=== PATIENT | male | born 1985 | race African-American/Black ===

== ENCOUNTER 2021-11-10 14:49 | Emergency (ER) | payer OTHER ==
[~2021-11-10] VITALS: Ht 172.7 cm; Wt 45.4 kg
[2021-11-10] MEDS ORDERED: IBUPROFEN600 MG PO (15:44)
[2021-11-10] MEDS ORDERED: TAMIFLU75 MG PO (15:44)
[2021-11-10] MEDS ORDERED: BENZONATATE200 MG PO (15:44)
== END 2021-11-10 15:49 | disposition home or self-care (01) ==
LOC: FSED 14:59
DX: R05.9 Cough, unspecified (principal); J10.1 Influenza due to other identified influenza virus with other respiratory manifestations; Z20.822 Contact with and (suspected) exposure to COVID-19; F17.210 Nicotine dependence, cigarettes, uncomplicated
CPT/HCPCS: 87400; 99282; U0002

== ENCOUNTER 2021-12-09 00:02 | Emergency (ER) | payer OTHER ==
[~2021-12-09] VITALS: Ht 167.6 cm; Wt 101.2 kg
[~2021-12-09 00:02] MED LIST: BENZONATATE200 MG PO; IBUPROFEN600 MG PO; TAMIFLU75 MG PO
[2021-12-09] MEDS ORDERED: ACETAMINOPHEN 325 MG TAB PO ONE (00:30)
[2021-12-09] MEDS ORDERED: ACETAMINOPHEN 325 MG TAB ONE (00:46)
[2021-12-09] MEDS ORDERED: KETOROLAC TROMETHAMINE 30 MG/ML VIAL IV STA (00:57)
[2021-12-09] MEDS ORDERED: SODIUM CHLORIDE 0.9% 1000ML 1,000 ML IV SCH (01:00)
[2021-12-09] MEDS ORDERED: KETOROLAC TROMETHAMINE 30 MG/ML VIAL ONE (01:17)
[2021-12-09] MEDS ORDERED: SODIUM CHLORIDE 0.9% 1000ML 1,000 ML ONE (01:17)
[2021-12-09 01:56] VITALS: BP 135/78
== END 2021-12-09 02:46 | disposition home or self-care (01) ==
LOC: FSED 00:24
DX: R50.9 Fever, unspecified (principal); B34.9 Viral infection, unspecified; R74.8 Abnormal levels of other serum enzymes; Z20.822 Contact with and (suspected) exposure to COVID-19; F17.210 Nicotine dependence, cigarettes, uncomplicated
CPT/HCPCS: 71046; 81003; 87400; 96374; 99283; J1885; J7030; U0002

== ENCOUNTER 2022-10-28 11:58 | Emergency (ER) | payer BC ==
[~2022-10-28] VITALS: Ht 172.7 cm; Wt 96.6 kg
[~2022-10-28 11:58] MED LIST changes: +AMOXICILLIN500 MG PO
[2022-10-28] MEDS ORDERED: ULTRAM 50MG50 MG PO (12:35)
== END 2022-10-28 12:51 | disposition home or self-care (01) ==
LOC: FSED 12:23
DX: S83.92XA Sprain of unspecified site of left knee, initial encounter (principal)
CPT/HCPCS: 99283

== ENCOUNTER 2023-06-12 08:54 | Emergency (ER) | payer BC ==
[~2023-06-12] VITALS: Ht 170.2 cm; Wt 84.5 kg
[~2023-06-12 08:54] MED LIST changes: +BENZONATATE100 MG PO; +CLARITIN-D 241 EACH PO; +MUCINEX DM ER1 EAC1 PO; +PROAIR DIGIHAL90 MCG INH; +ULTRAM 50MG50 MG PO
[2023-06-12] MEDS ORDERED: SODIUM CHLORIDE 0.9% 1000ML 1,000 ML IV STA (09:21)
[2023-06-12] MEDS ORDERED: KETOROLAC TROMETHAMINE 30 MG/ML VIAL IV ONE (09:30)
[2023-06-12] MEDS ORDERED: FAMOTIDINE 20 MG/2 ML VIAL IV ONE ×2 (09:30→09:46)
[2023-06-12] MEDS ORDERED: ONDANSETRON HCL INJ 2MG/ML 2ML 2 MG/ML VIAL IV ONE (09:30)
[2023-06-12] MEDS ORDERED: FAMOTIDINE20 MG PO (09:33)
[2023-06-12] MEDS ORDERED: ONDANSETRON ODT4 MG PO (09:33)
[2023-06-12] MEDS ORDERED: MAALOX MAXIMUM355 ML PO (09:33)
[2023-06-12] MEDS ORDERED: DICYCLOMINE HCL20 MG PO (09:33)
[2023-06-12] MEDS ORDERED: SODIUM CHLORIDE 0.9% 1000ML 1,000 ML ONE (09:46)
[2023-06-12] MEDS ORDERED: ONDANSETRON HCL INJ 2MG/ML 2ML 2 MG/ML VIAL ONE (09:46)
[2023-06-12] MEDS ORDERED: KETOROLAC TROMETHAMINE 30 MG/ML VIAL ONE (09:46)
[2023-06-12 10:31] VITALS: O2SAT 100
== END 2023-06-12 10:31 | disposition home or self-care (01) ==
LOC: FSED 09:02
DX: R11.2 Nausea with vomiting, unspecified (principal); A05.9 Bacterial foodborne intoxication, unspecified; R19.7 Diarrhea, unspecified; F17.210 Nicotine dependence, cigarettes, uncomplicated
CPT/HCPCS: 80053; 81003; 85025; 96374; 96375; 99284; J1885; J2405; J7030

== ENCOUNTER 2024-02-18 07:47 | Emergency (ER) | payer BC ==
[~2024-02-18] VITALS: Ht 167.6 cm; Wt 86.6 kg
[~2024-02-18 07:47] MED LIST changes: +AMOX TR-K CLV1 EAC2 PO; +DICYCLOMINE HCL20 MG PO; +FAMOTIDINE20 MG PO; +IBUPROFEN200 MG PO; +MAALOX MAXIMUM355 ML PO; +ONDANSETRON ODT4 MG PO; +PREDNISONE20 MG PO; +TYLENOL325 MG PO; +ZANAFLEX4 MG PO
[2024-02-18 07:54] VITALS: PULSE 50; RESP 18; TEMP 98.4; O2SAT 99
[2024-02-18] MEDS: FLUORESCEIN SOD(OPTH) 1 MG STRP OP ONE (08:12)
[2024-02-18] MEDS: TETRACAINE HCL 0.5% OPTH SOLN 4 ML BTL OP ONE (08:15)
[2024-02-18] MEDS ORDERED: OCUFLOX5 ML OP (08:23)
== END 2024-02-18 08:27 | disposition home or self-care (01) ==
LOC: FSED 07:50
DX: H00.11 Chalazion right upper eyelid (principal); F17.200 Nicotine dependence, unspecified, uncomplicated
CPT/HCPCS: 99282

== ENCOUNTER 2024-07-09 11:04 | Emergency (ER) | payer BC ==
[~2024-07-09] VITALS: Ht 167.6 cm; Wt 87.7 kg
[~2024-07-09 11:04] MED LIST changes: +OCUFLOX5 ML OP
[2024-07-09] MEDS ORDERED: FIORICET 50-301 EACH PO (12:09)
[2024-07-09] MEDS: DEXAMETHASONE SOD PHOS INJ 4 MG/ML SDV IM ONE (12:35)
[2024-07-09] MEDS: KETOROLAC TROMETHAMINE 60 MG/2 ML VIAL IM ONE (12:36)
[2024-07-09 12:48] VITALS: PULSE 52; RESP 14; TEMP 97.6; O2SAT 99
== END 2024-07-09 12:48 | disposition home or self-care (01) ==
LOC: FSED 11:07
DX: R51.9 Headache, unspecified (principal)
CPT/HCPCS: 96372; 99283; J1100; J1885

== ENCOUNTER 2025-03-20 09:41 | Emergency (ER) | payer BC ==
[~2025-03-20] VITALS: Ht 167.6 cm; Wt 88.0 kg
[~2025-03-20 09:41] MED LIST changes: +FIORICET 50-301 EACH PO
[2025-03-20 09:43] VITALS: PULSE 55; RESP 16; TEMP 98.6
[2025-03-20] MEDS ORDERED: AMOX TR-K CLV1 EAC2 PO (10:05)
[2025-03-20 10:09] VITALS: BP 158/92; PULSE 55; RESP 16; TEMP 98.6; O2SAT 100
== END 2025-03-20 10:11 | disposition home or self-care (01) ==
LOC: FSED 09:45
DX: K08.89 Other specified disorders of teeth and supporting structures (principal); K04.7 Periapical abscess without sinus; F17.210 Nicotine dependence, cigarettes, uncomplicated
CPT/HCPCS: 99283